=== PATIENT | female | born 1950 | race Caucasian/White ===

== ENCOUNTER 2018-05-06 20:23 | Emergency (ER) | payer MEDICARE, SELFPAY ==
[~2018-05-06] VITALS: Ht 167.6 cm; Wt 117.9 kg
[~2018-05-06 20:23] MED LIST: ASPI81CH; DAILY MULTIPLE1 EACH; HYDCHL25 PO; POTASSIUM99 M1 PO; PSYL5.85P PO; TRIHYD253B
[2018-05-06 20:56] LABS: BASOPHILS ABSOLUTE AUTO 0.03 K/mm3 (0.00-0.23); BASOPHILS PERCENT AUTO 0 % (0-2); EOSINOPHILS ABSOLUTE AUTO 0.02 K/mm3 (0.00-0.68); EOSINOPHILS PERCENT AUTO 0 % (0-6); Hematocrit 43.3 % (33.0-51.0); IMMATURE GRAN ABSOLUTE AUTO 0.19 K/mm3 (0.00-0.10); IMMATURE GRAN PERCENT AUTO 2 % (0-1); LYMPHOCYTES ABSOLUTE AUTO 2.58 K/mm3 (0.84-5.20); LYMPHOCYTES PERCENT AUTO 23 % (21-46); MONOCYTES ABSOLUTE AUTO 2.64 K/mm3 (0.16-1.47); MONOCYTES PERCENT AUTO 23 % (4-13); Mean Corpuscular HGB 28.3 pg (26.0-34.0); Mean Corpuscular HGB Conc 32.3 g/dL (31.5-36.5); Mean Corpuscular Volume 88 fL (80-100); NEUTROPHILS ABSOLUTE AUTO 5.93 K/mm3 (1.96-9.15); NEUTROPHILS PERCENT AUTO 52 % (41-73); Platelet Count 156 K/mm3 (150-400); RDW Coefficient Variation 14.1 % (11.7-14.2); RDW Standard Deviation 45.1 fL (35.1-46.3); Red Blood Cell Count 4.95 M/mm3 (3.80-5.20); White Blood Cell Count 11.39 K/mm3 (4.00-11.30)
[2018-05-06 21:17] LABS: Alanine Aminotransfer (ALT/SGP 30 U/L (12-78); Albumin, Blood 4.3 g/dL (3.4-5.0); Albumin/Globulin Ratio 1.2 (0.8-1.8); Alk Phos 73 U/L (50-136); Anion Gap 7 mmol/L (6-16); Aspartate Aminotrans (AST/SGOT 18 U/L (12-37); Bilirubin, Total 0.4 mg/dL (0.1-1.0); Blood Urea Nitrogen 19 mg/dL (8-24); Bun/Creatinine Ratio 24.6 (12.0-20.0); CO2, Blood 25 mmol/L (21-32); Calcium, Blood 10.1 mg/dL (8.5-10.1); Chloride, Blood 106 mmol/L (98-108); Creatinine, Blood 0.77 mg/dL (0.40-1.00); Globulin, Blood 3.7 g/dL (2.2-4.0); Glomerular Filtration Rate >60 (60-); Glucose, Blood 88 mg/dL (70-99); Potassium, Blood 3.4 mmol/L (3.5-5.5); Sodium, Blood 138 mmol/L (136-145); Troponin I <0.015 ng/mL (0.000-0.040)
[2018-05-07] MEDS ORDERED: VOLTAREN100 GM TOP (00:29)
== END 2018-05-07 00:43 | disposition home or self-care (01) ==
LOC: ER 20:23
PROVIDERS: Emergency Medicine
DX: R07.9 Chest pain, unspecified (principal); M54.9 Dorsalgia, unspecified; Z88.0 Allergy status to penicillin; Z91.048 Other nonmedicinal substance allergy status; Z88.1 Allergy status to other antibiotic agents; Z79.899 Other long term (current) drug therapy; Z79.82 Long term (current) use of aspirin; Z87.891 Personal history of nicotine dependence
CPT/HCPCS: 36415; 71046; 80053; 84484; 85025; 93005; 93010; 96374; 99284-25; J1885

== ENCOUNTER → 2019-10-23 | Outpatient (CLI) | payer MEDICARE ==
[~2019-10-23] MED LIST changes: +BIOTIN1 MG PO; +FURO40 PO; +POTA10T PO; +VOLTAREN100 GM TOP
[2019-10-23 20:53] LABS: CHOL/HDL RATIO 6.8; Cholesterol 191 mg/dL (50-200); HDL Cholesterol 28 mg/dL (>39); LDL/HDL RATIO 3.3; Low Density Lipoprotein Chol 91 mg/dL (0-110); Triglycerides 359 mg/dL (30-160); Uric Acid, Blood 6.4 mg/dL (2.6-6.0); Very Low Density Lipoprot Chol 71 mg/dL (6-32)
== END ==
LOC: LAB 19:23 → LAB SHORT 19:23 → EDSTATUS 10-02 15:40 → LAB FUT 10-02 15:40
PROVIDERS: Family Medicine
DX: E78.5 Hyperlipidemia, unspecified (principal); M1A.9XX1 Chronic gout, unspecified, with tophus (tophi)
CPT/HCPCS: 80061; 84550

== ENCOUNTER → 2020-03-11 | Outpatient (CLI) | payer MEDICARE, OTHER ==
[2020-03-11 20:32] LABS: Uric Acid, Blood 6.6 mg/dL (2.6-6.0)
[2020-03-11 20:37] LABS: Anion Gap 5 mmol/L (6-16); Blood Urea Nitrogen 21 mg/dL (8-24); CO2, Blood 28 mmol/L (21-32); Calcium, Blood 9.8 mg/dL (8.5-10.1); Chloride, Blood 105 mmol/L (98-108); Creatinine, Blood 0.72 mg/dL (0.40-1.00); Glomerular Filtration Rate >60 (60-); Glucose, Blood 94 mg/dL (70-99); Potassium, Blood 3.8 mmol/L (3.5-5.5); Sodium, Blood 138 mmol/L (136-145)
== END | disposition home or self-care (01) ==
LOC: LAB 19:26 → LAB SHORT 19:26
PROVIDERS: Family Medicine
DX: M1A.9XX1 Chronic gout, unspecified, with tophus (tophi) (principal)
CPT/HCPCS: 80048; 84550

== ENCOUNTER → 2020-03-25 | Outpatient (CLI) | payer MEDICARE ==
[2020-03-30 15:10] LABS: HPV 16 Negative (Negative); HPV 18 Negative (Negative); HPV OTHER HR TYPES Negative (Negative)
== END | disposition home or self-care (01) ==
LOC: LAB 19:37 → LAB SHORT 19:37
PROVIDERS: Family Medicine
DX: Z12.4 Encounter for screening for malignant neoplasm of cervix (principal)
CPT/HCPCS: 87624; G0123

== ENCOUNTER 2020-07-01 08:54 | Emergency (ER) | payer MEDICARE, OTHER ==
[~2020-07-01] VITALS: Ht 167.6 cm; Wt 115.7 kg
[2020-07-01] MEDS ORDERED: OMEP20ER PO (10:04)
[2020-07-01] MEDS ORDERED: FURO40 PO (10:04)
[2020-07-01] MEDS ORDERED: POTCHL20ER PO (10:05)
[2020-07-01] MEDS ORDERED: ALLO100 PO (10:05)
[2020-07-01] MEDS ORDERED: MELO7.5 PO (10:05)
[2020-07-01 11:20] LABS: BASOPHILS ABSOLUTE AUTO 0.05 K/mm3 (0.00-0.23); BASOPHILS PERCENT AUTO 1 % (0-2); EOSINOPHILS ABSOLUTE AUTO 0.06 K/mm3 (0.00-0.68); EOSINOPHILS PERCENT AUTO 1 % (0-6); Hematocrit 46.3 % (33.0-51.0); Hemoglobin 14.3 g/dL (11.5-16.0); IMMATURE GRAN ABSOLUTE AUTO 0.17 K/mm3 (0.00-0.10); IMMATURE GRAN PERCENT AUTO 2 % (0-1); LYMPHOCYTES ABSOLUTE AUTO 2.22 K/mm3 (0.84-5.20); LYMPHOCYTES PERCENT AUTO 27 % (21-46); MONOCYTES ABSOLUTE AUTO 1.56 K/mm3 (0.16-1.47); MONOCYTES PERCENT AUTO 19 % (4-13); Mean Corpuscular HGB 29.5 pg (26.0-34.0); Mean Corpuscular HGB Conc 30.9 g/dL (31.5-36.5); Mean Corpuscular Volume 96 fL (80-100); Mean Platelet Volume 10.6 fL (9.1-12.4); NEUTROPHILS ABSOLUTE AUTO 4.07 K/mm3 (1.96-9.15); NEUTROPHILS PERCENT AUTO 50 % (41-73); Platelet Count 212 K/mm3 (150-400); RDW Coefficient Variation 14.9 % (11.7-14.2); RDW Standard Deviation 52.7 fL (35.1-46.3); Red Blood Cell Count 4.85 M/mm3 (3.80-5.20); White Blood Cell Count 8.13 K/mm3 (4.00-11.30)
[2020-07-01 11:34] LABS: International Normalized Ratio 0.96; Prothrombin Time Results 10.3 Sec (9.7-11.5)
[2020-07-01 11:39] LABS: Alanine Aminotransfer (ALT/SGP 32 U/L (12-78); Albumin, Blood 4.1 g/dL (3.4-5.0); Albumin/Globulin Ratio 1.1 (0.8-1.8); Alk Phos 96 U/L (50-136); Anion Gap 4 mmol/L (6-16); Aspartate Aminotrans (AST/SGOT 24 U/L (12-37); Bilirubin, Total 0.4 mg/dL (0.1-1.0); Blood Urea Nitrogen 20 mg/dL (8-24); Bun/Creatinine Ratio 24.9 (12.0-20.0); CO2, Blood 28 mmol/L (21-32); Calcium, Blood 9.3 mg/dL (8.5-10.1); Chloride, Blood 109 mmol/L (98-108); Globulin, Blood 3.8 g/dL (2.2-4.0); Glomerular Filtration Rate >60 (60-); Glucose, Blood 96 mg/dL (70-99); Sodium, Blood 141 mmol/L (136-145); Total Protein, Blood 7.9 g/dL (6.4-8.2)
[2020-07-01] MEDS ORDERED: KEFLEX500 MG PO (12:14)
== END 2020-07-01 12:25 | disposition home or self-care (01) ==
LOC: ER 08:54
PROVIDERS: Emergency Medicine
DX: L03.115 Cellulitis of right lower limb (principal); Z88.0 Allergy status to penicillin; Z91.09 Other allergy status, other than to drugs and biological substances; Z88.1 Allergy status to other antibiotic agents; Z79.899 Other long term (current) drug therapy; Z87.891 Personal history of nicotine dependence
CPT/HCPCS: 36415; 80053; 85025; 85610; 85730; 87070; 87075; 87205; 93970; 99284-25

== ENCOUNTER 2021-03-28 12:17 | Inpatient (IN) | payer MEDICARE ==
[~2021-03-28] VITALS: Ht 170.2 cm; Wt 119.5 kg
[~2021-03-28 12:17] MED LIST changes: +ALLO100 PO; +KEFLEX500 MG PO; +MELO7.5 PO; +OMEP20ER PO; +POTCHL20ER PO
[2021-03-28 13:19] LABS: BASOPHILS ABSOLUTE AUTO 0.06 K/mm3 (0.00-0.23); BASOPHILS PERCENT AUTO 1 % (0-2); EOSINOPHILS ABSOLUTE AUTO 0.01 K/mm3 (0.00-0.68); EOSINOPHILS PERCENT AUTO 0 % (0-6); Hematocrit 44.9 % (33.0-51.0); Hemoglobin 15.1 g/dL (11.5-16.0); IMMATURE GRAN ABSOLUTE AUTO 0.52 K/mm3 (0.00-0.10); IMMATURE GRAN PERCENT AUTO 4 % (0-1); LYMPHOCYTES ABSOLUTE AUTO 1.02 K/mm3 (0.84-5.20); LYMPHOCYTES PERCENT AUTO 8 % (21-46); MONOCYTES ABSOLUTE AUTO 3.06 K/mm3 (0.16-1.47); MONOCYTES PERCENT AUTO 25 % (4-13); Mean Corpuscular HGB 29.5 pg (26.0-34.0); Mean Corpuscular HGB Conc 33.6 g/dL (31.5-36.5); Mean Corpuscular Volume 88 fL (80-100); NEUTROPHILS PERCENT AUTO 62 % (41-73); Platelet Count 75 K/mm3 (150-400); RDW Coefficient Variation 15.2 % (11.7-14.2); RDW Standard Deviation 49.4 fL (35.1-46.3); Red Blood Cell Count 5.11 M/mm3 (3.80-5.20); White Blood Cell Count 12.17 K/mm3 (4.00-11.30)
[2021-03-28 13:24] LABS: Mean Platelet Volume 13.6 fL (9.1-12.4)
[2021-03-28 13:35] LABS: Alanine Aminotransfer (ALT/SGP 103 U/L (12-78); Albumin, Blood 2.7 g/dL (3.4-5.0); Albumin/Globulin Ratio 0.7 (0.8-1.8); Alk Phos 132 U/L (50-136); Anion Gap 7 mmol/L (6-16); Aspartate Aminotrans (AST/SGOT 67 U/L (12-37); Bilirubin, Total 0.7 mg/dL (0.1-1.0); Blood Urea Nitrogen 13 mg/dL (8-24); Bun/Creatinine Ratio 19.3 (12.0-20.0); CO2, Blood 31 mmol/L (21-32); Calcium, Blood 8.9 mg/dL (8.5-10.1); Chloride, Blood 91 mmol/L (98-108); Creatinine, Blood 0.67 mg/dL (0.40-1.00); Globulin, Blood 4.1 g/dL (2.2-4.0); Glomerular Filtration Rate >60 (60-); Glucose, Blood 97 mg/dL (70-99); Potassium, Blood 3.5 mmol/L (3.5-5.5); Sodium, Blood 129 mmol/L (136-145); Total Protein, Blood 6.8 g/dL (6.4-8.2); Troponin I <0.015 ng/mL (0.000-0.040)
--- NOTE | 2021-03-28 17:34 | NUR ---
SHIFT SUMMARY PATIENT ARRIVED TO THE FLOOR FROM THE ED LATE THIS AFTERNOON. PATIENT ALERT AND ORIENTED UPON ARRIVAL. PATIENT TRANSFERED TO THE BED WITH MINIMAL ASSIST. PATIENT ON 10L O2 UPON ARRIVAL. PATIENT INCREASED TO 15L O2 ON REBREATHER TO MAINTAIN O2 > 90. PATIENT ENCOURAGED TO LAY ON HER SIDE TO MAINTAIN O2 SATS. PATIENT UP TO THE BATHROOM 1X, REMOVED HER O2. PATIENT EDUCATED TO USE BSC AND KEEP O2 ON. PATIENT CURRENTLY LYING IN BED RESTING.
[2021-03-29 05:04] LABS: BASOPHILS ABSOLUTE AUTO 0.04 K/mm3 (0.00-0.23); BASOPHILS PERCENT AUTO 0 % (0-2); EOSINOPHILS PERCENT AUTO 0 % (0-6); Hematocrit 41.6 % (33.0-51.0); Hemoglobin 14.2 g/dL (11.5-16.0); IMMATURE GRAN ABSOLUTE AUTO 0.37 K/mm3 (0.00-0.10); IMMATURE GRAN PERCENT AUTO 3 % (0-1); LYMPHOCYTES ABSOLUTE AUTO 1.44 K/mm3 (0.84-5.20); LYMPHOCYTES PERCENT AUTO 10 % (21-46); MONOCYTES ABSOLUTE AUTO 4.71 K/mm3 (0.16-1.47); MONOCYTES PERCENT AUTO 32 % (4-13); Mean Corpuscular HGB Conc 34.1 g/dL (31.5-36.5); Mean Corpuscular Volume 88 fL (80-100); Mean Platelet Volume 12.8 fL (9.1-12.4); NEUTROPHILS PERCENT AUTO 55 % (41-73); Platelet Count 70 K/mm3 (150-400); RDW Standard Deviation 48.3 fL (35.1-46.3); Red Blood Cell Count 4.73 M/mm3 (3.80-5.20); White Blood Cell Count 14.66 K/mm3 (4.00-11.30)
[2021-03-29 05:37] LABS: Alanine Aminotransfer (ALT/SGP 82 U/L (12-78); Albumin, Blood 2.6 g/dL (3.4-5.0); Albumin/Globulin Ratio 0.7 (0.8-1.8); Alk Phos 115 U/L (50-136); Anion Gap 5 mmol/L (6-16); Aspartate Aminotrans (AST/SGOT 51 U/L (12-37); Bilirubin, Total 0.5 mg/dL (0.1-1.0); Blood Urea Nitrogen 12 mg/dL (8-24); Bun/Creatinine Ratio 19.1 (12.0-20.0); CO2, Blood 32 mmol/L (21-32); Calcium, Blood 8.6 mg/dL (8.5-10.1); Chloride, Blood 96 mmol/L (98-108); Creatinine, Blood 0.63 mg/dL (0.40-1.00); Globulin, Blood 3.7 g/dL (2.2-4.0); Glomerular Filtration Rate >60 (60-); Glucose, Blood 98 mg/dL (70-99); Magnesium, Blood 2.3 mg/dL (1.6-2.4); Potassium, Blood 3.3 mmol/L (3.5-5.5); Sodium, Blood 133 mmol/L (136-145); Total Protein, Blood 6.3 g/dL (6.4-8.2)
[2021-03-29 05:52] LABS: Source, Urine Catheter
[2021-03-29 05:55] LABS: Bilirubin, Urine Neg (Neg); Blood, Urine 3+ (Neg); Glucose Qualitative, Urine Neg (Neg); Ketones, Urine Neg (Neg); Leukocyte Esterase, Urine Neg (Neg); Nitrite, Urine Neg (Neg); Protein, Urine 1+ (Neg); Specific Gravity, Urine 1.005 (1.003-1.022); Urobilinogen, Urine NORM (Normal)
--- NOTE | 2021-03-29 06:00 | NUR ---
SHIFT SUMMARY: NORMALLY AOX3 BUT FREQUENT PERIODS OF CONFUSION LAST NIGHT PULLING OFF HER OXYGEN, AND NOT KNOWING WHERE SHE WAS AT. WHEN OXYGEN SATS ARE UP SHE APPEARS TO BE WITH IT BUT SOON THEY DROP SHE IS CONFUSED/FORGETFUL. MAX OUT ON THE AIRVO 60L 95-100%O2. SLIGHT MOVMENT CAUSES HER TO DROP ON HER SATS TO LOW 80%. COUGH IS LOOSE PRODUCTIVE, THICK YELLOW. GOT HER TO AT LEAST LAY ON SIDE WHICH IMPROVES HER SATS AT LEAST JUST ABOVE 90%, IF SHE LAYS ON HER BACK IT DROPS TO MID 80'S. WAS FREQUENTLY GETTING UP TO BSC, LOOSE STOOLS, INCONTIENT/CONTENIENT. FREQUENT URINATION. EVERY TIMES SHE GOT UP SHE DESAT TO 79-80% RECOVER TOOK LONG TIME TO GET HER SATS BACK UP. CALLED MD ORDER FOR CATH WAS OBTAINED, 14 F PLACED. SHE WAS ABLE TO SLEEP FOR SHORT PERIOD ONLY. PATIENT IS VERY ILL AND IS TIRED, WARN OUT. AT RISK FOR HIGHER NEED OF O2, SHE WAS BOADERLINE BIPAP ALL NIGHT, DROPPING FREQUENTLY AND COULD NOT MOVE OFF HER SIDE. VS WNL, AFEBRILE. CALL LIGHT IN REACH.
[2021-03-29 06:06] LABS: Appearance, Urine Clear (Clear); Color, Urine Pale Yellow (P-Yellow)
[2021-03-29 06:08] LABS: Bacteria Not Seen /hpf; Squamous Epithelial Cells Rare /hpf (Few); White Blood Cells, Urine 0-2 /hpf (0-5)
[2021-03-29 12:04] LABS: PCO2 Arterial 53.2 mmHg (35-45); PO2 Arterial 62.1 mmHg (80-100); pH Blood Arterial 7.41 (7.35-7.45)
--- NOTE | 2021-03-29 14:45 | NUR ---
PT ARRIVAL... PT ARRIVED ON THE UNIT AT 1430 WITH AIRVO AT 60L AND 95% WITH O2 SATS AT 90-93% L/S CLEAR IN THE UPPER LOBES DIM IN THE LOWER. PT'S OTHER VS STABLE AT THIS TIME, PT AWAKE AND TALKING, RR IN THE HIGH 20'S MID 30'S. PT'S BT PRESENT AND HYPOACTIVE, ABD IS SOFT AND NONTENDER TO PALP. PT'S CHADWICK IS PATENT AND DRAINING TO GRAVITY. PT'S O2 SATS DROP QUICKLY WITH ANY TYPE OF MOVEMENT AND SHE RECOVERS SLOWLY. WILL CONTINUE TO MONITOR.
--- NOTE | 2021-03-29 15:35 | NUR ---
PT WAS TRANSFERED TO PCU ALERT AND ORIENTED X4, WITH RT, AID AND NURSE AT SIDE, MAKING NO COMPLAINTS OF SOB OR CHEST PAIN AT THE TIME. PT BELONGINGS WERE ON SELF. UPDATE WAS GIVEN TO FAMILY.
--- NOTE | 2021-03-29 17:08 | NUR ---
SHIFT SUMMARY... AT APROX 1645 THE PT'S O2 SATS STARTED TO DROP DOWN TO 85% PT'S FIO2 WAS TURNED UP TO 100% PUTTING HER AT 60L AND 100% ON THE BIPAP ON HI-FLOW SETTINGS. PT'S OTHER VS STABLE AT THIS TIME. RT WAS CALLED AND THEY CAME INTO THE ROOM TO SET UP FOR BIPAP, THE PT WAS PLACED ON BIPAP AT: 14/8 AND 90% FIO2, THE PT'S O2 SATS DROPPED QUICKLY WHEN THE AIRVO WAS CHANGED TO THE BIPAP, THE PT'S O2 SATS DROPPED DOWN TO 78%, ONCE THE BIPAP MASK WAS ON THEY IMPROVED QUICKLY UP TO 90% BUT THEN STARTED TO DROP BACK DOWN TO 86-87% THE FIO2 WAS INCREASED TO 95% AND THE PTS O2 SATS ARE CURRENTLY AT 90%. PT'S CHADWICK DRAINED A LARGE AMOUNT OF CLEAR YELLOW URINE TO GRAVITY, PT HAS NOT HAD A BM SINCE COMING TO THE PCU, PT IS CURRENTLY NPO WHILE ON THE BIPAP. CALL LIGHT IN REACH WILL CONTINUE TO MONITOR UNTIL REPORT IS GIVEN TO ONCOMING RN.
[2021-03-30 04:06] LABS: BASOPHILS ABSOLUTE AUTO 0.05 K/mm3 (0.00-0.23); BASOPHILS PERCENT AUTO 0 % (0-2); EOSINOPHILS PERCENT AUTO 0 % (0-6); Hematocrit 38.4 % (33.0-51.0); Hemoglobin 12.6 g/dL (11.5-16.0); IMMATURE GRAN ABSOLUTE AUTO 0.37 K/mm3 (0.00-0.10); IMMATURE GRAN PERCENT AUTO 2 % (0-1); LYMPHOCYTES PERCENT AUTO 9 % (21-46); MONOCYTES ABSOLUTE AUTO 5.53 K/mm3 (0.16-1.47); MONOCYTES PERCENT AUTO 31 % (4-13); Mean Corpuscular HGB 29.6 pg (26.0-34.0); Mean Corpuscular HGB Conc 32.8 g/dL (31.5-36.5); Mean Corpuscular Volume 90 fL (80-100); Mean Platelet Volume 12.8 fL (9.1-12.4); NEUTROPHILS ABSOLUTE AUTO 10.43 K/mm3 (1.96-9.15); NEUTROPHILS PERCENT AUTO 58 % (41-73); Platelet Count 87 K/mm3 (150-400); RDW Coefficient Variation 15.6 % (11.7-14.2); RDW Standard Deviation 51.5 fL (35.1-46.3); Red Blood Cell Count 4.25 M/mm3 (3.80-5.20); White Blood Cell Count 18.08 K/mm3 (4.00-11.30)
[2021-03-30 04:31] LABS: Alanine Aminotransfer (ALT/SGP 90 U/L (12-78); Albumin, Blood 2.3 g/dL (3.4-5.0); Albumin/Globulin Ratio 0.7 (0.8-1.8); Alk Phos 107 U/L (50-136); Anion Gap 5 mmol/L (6-16); Aspartate Aminotrans (AST/SGOT 66 U/L (12-37); Bilirubin, Total 0.5 mg/dL (0.1-1.0); Blood Urea Nitrogen 14 mg/dL (8-24); Bun/Creatinine Ratio 23.3 (12.0-20.0); CO2, Blood 30 mmol/L (21-32); Chloride, Blood 102 mmol/L (98-108); Globulin, Blood 3.4 g/dL (2.2-4.0); Glomerular Filtration Rate >60 (60-); Glucose, Blood 79 mg/dL (70-99); Potassium, Blood 3.6 mmol/L (3.5-5.5); Sodium, Blood 137 mmol/L (136-145); Total Protein, Blood 5.7 g/dL (6.4-8.2)
--- NOTE | 2021-03-30 06:47 | NUR ---
SHIFT SUMMARY PT RESTED WELL THROUGH MOST OF NIGHT. ANXIOUS ABOUT WEARING BIPAP, BUT UNABLE TO TOLERATE AIRVO AT THIS TIME. BIPAP SETTINGS INCREASED. 18/03 TO 20/07 100%. SATS ARE 92%. TELE TERRIER/ST. CHADWICK IN [place], DRAINING TO GRAVITY. NO BM. 20G LAC WITH NS @100/HR. XANAX GIVEN X1. VSS. CALL LIGHT WITHIN REACH, BED IN LOWEST POSITINO. WILL CONTINEU TO MONITOR.
--- NOTE | 2021-03-30 09:38 | NUR ---
[facility] Received report from night nurse. Per report, pt has been pulling off bipap mask and not wanting to keep it on as she reports that it is uncomfortable. This morning the float nurse and PRODUCT ENGINEER assisted the pt up to the recliner and gave her a break from the mask and set her up on AIRVO. She did ok for a few minutes but then started to desat into the low 80's. The Dr was in the room. This nurse and the clinical coordinator spoke with the pt about her need for increased o2 and the pt agreed to trial the BIPAP mask again. She is currently at 96 % with 100 % o2 on the BIPAP. Her hogan is patent. Palliative care consult has been called in per the dr request to discuss code status. She is sitting up in the recliner with her call light in reach.
--- NOTE | 2021-03-30 16:04 | NUR ---
Shift Summary Pt is a/o x 2-3 today with some mild confusion. She has been able to tolerate the Bipap mask after talking with her this morning and she is maintaining her sats in the 90's. Once situated in the recliner her anxiety has been much better. Her hogan is patent with summer urine output. Her IV fluids have been infusing as ordered. Her has been updated and thankful for her care. The pt is able to make her needs known and has her call light in reach.
--- NOTE | 2021-03-30 18:34 | NUR ---
Received consult for Palliative care for this patient. After some disussion with her bedside nurse, felt it appropriate to assess pt, and speak to pt's spouse regarding future plans related to her care. He is a realist and states today he would not want her resusitated if her heart were to stop. This is reasonalble. She is not currently in a place where she would be able to appropriately answer questions. However, pt has stated she found ventilation appropriate for the time being. Will review this with tomorrow.
[2021-03-31 04:46] LABS: BASOPHILS ABSOLUTE AUTO 0.04 K/mm3 (0.00-0.23); BASOPHILS PERCENT AUTO 0 % (0-2); EOSINOPHILS ABSOLUTE AUTO 0.02 K/mm3 (0.00-0.68); EOSINOPHILS PERCENT AUTO 0 % (0-6); Hemoglobin 12.4 g/dL (11.5-16.0); Mean Corpuscular HGB 29.2 pg (26.0-34.0); Mean Corpuscular HGB Conc 31.8 g/dL (31.5-36.5); Mean Corpuscular Volume 92 fL (80-100); Mean Platelet Volume 12.3 fL (9.1-12.4); Platelet Count 121 K/mm3 (150-400); RDW Coefficient Variation 15.9 % (11.7-14.2); RDW Standard Deviation 53.6 fL (35.1-46.3); Red Blood Cell Count 4.25 M/mm3 (3.80-5.20); White Blood Cell Count 20.36 K/mm3 (4.00-11.30)
[2021-03-31 04:49] LABS: IMMATURE GRAN ABSOLUTE AUTO 0.57 K/mm3 (0.00-0.10); IMMATURE GRAN PERCENT AUTO 3 % (0-1); LYMPHOCYTES ABSOLUTE AUTO 1.91 K/mm3 (0.84-5.20); LYMPHOCYTES PERCENT AUTO 9 % (21-46); MONOCYTES ABSOLUTE AUTO 6.21 K/mm3 (0.16-1.47); MONOCYTES PERCENT AUTO 31 % (4-13); NEUTROPHILS ABSOLUTE AUTO 11.61 K/mm3 (1.96-9.15); NEUTROPHILS PERCENT AUTO 57 % (41-73)
[2021-03-31 04:55] LABS: Alanine Aminotransfer (ALT/SGP 82 U/L (12-78); Albumin, Blood 2.4 g/dL (3.4-5.0); Albumin/Globulin Ratio 0.7 (0.8-1.8); Alk Phos 131 U/L (50-136); Anion Gap 5 mmol/L (6-16); Aspartate Aminotrans (AST/SGOT 49 U/L (12-37); Bilirubin, Total 0.7 mg/dL (0.1-1.0); Blood Urea Nitrogen 14 mg/dL (8-24); Bun/Creatinine Ratio 20.7 (12.0-20.0); CO2, Blood 31 mmol/L (21-32); Calcium, Blood 8.1 mg/dL (8.5-10.1); Chloride, Blood 104 mmol/L (98-108); Creatinine, Blood 0.68 mg/dL (0.40-1.00); Globulin, Blood 3.6 g/dL (2.2-4.0); Glomerular Filtration Rate >60 (60-); Glucose, Blood 75 mg/dL (70-99); Potassium, Blood 3.7 mmol/L (3.5-5.5); Sodium, Blood 140 mmol/L (136-145)
--- NOTE | 2021-03-31 09:15 | NUR ---
SHIFT SUMMARY PT ALERT AND ORIENTED, ABLE TO MAKE NEEDS KNWON. COOPERATIVE WITH PLAN OF CARE. SATS >90% ON BIPAP 16/12 90% FIO2. TELE NSR. CHADWICK IN PLACE, DRAINING TO GRAVITY, JESUS CARE PERFOEMED. REPSOITIONING FREQUTNLY TO KEEP PT COMFORTABLE. TYLENOL X1 FOR BACK PAIN - SEE EMAR. VSS. NO CHANGES OVERNIGHT. CALL LGIHT WITHIN REACH, BED IN LOWEST POSITION. WILL CONTINUE TO MONITOR.
--- NOTE | 2021-03-31 18:43 | NUR ---
SUMMARY PT HAS BEEN ON BIPAP ALL DAY. HAS BEEN TOLERATING WELL AND LEAVING IT ON. PT HAS BEEN PLEASANT AND COOPERATIVE. FIO2 WAS DECREASED TO 75%. PT HAS BEEN ABLE TO TEXT ON HER PHONE TO FAMILY. NO OTHER CHANGES THIS SHIFT.
--- NOTE | 2021-03-31 19:45 | NUR ---
Per charge nurse Surya, pt is able to make her needs and wants known. No changes to code status at this time.
[2021-04-01 04:28] LABS: BASOPHILS ABSOLUTE AUTO 0.08 K/mm3 (0.00-0.23); BASOPHILS PERCENT AUTO 0 % (0-2); EOSINOPHILS ABSOLUTE AUTO 0.02 K/mm3 (0.00-0.68); EOSINOPHILS PERCENT AUTO 0 % (0-6); Hematocrit 42.5 % (33.0-51.0); Hemoglobin 13.4 g/dL (11.5-16.0); IMMATURE GRAN ABSOLUTE AUTO 0.91 K/mm3 (0.00-0.10); IMMATURE GRAN PERCENT AUTO 4 % (0-1); LYMPHOCYTES ABSOLUTE AUTO 1.65 K/mm3 (0.84-5.20); LYMPHOCYTES PERCENT AUTO 7 % (21-46); MONOCYTES ABSOLUTE AUTO 6.74 K/mm3 (0.16-1.47); MONOCYTES PERCENT AUTO 29 % (4-13); Mean Corpuscular HGB 29.1 pg (26.0-34.0); Mean Corpuscular HGB Conc 31.5 g/dL (31.5-36.5); Mean Corpuscular Volume 92 fL (80-100); Mean Platelet Volume 11.5 fL (9.1-12.4); NEUTROPHILS ABSOLUTE AUTO 13.88 K/mm3 (1.96-9.15); NEUTROPHILS PERCENT AUTO 60 % (41-73); Platelet Count 173 K/mm3 (150-400); RDW Coefficient Variation 16.1 % (11.7-14.2); White Blood Cell Count 23.28 K/mm3 (4.00-11.30)
[2021-04-01 04:55] LABS: Alanine Aminotransfer (ALT/SGP 88 U/L (12-78); Albumin, Blood 2.5 g/dL (3.4-5.0); Albumin/Globulin Ratio 0.6 (0.8-1.8); Alk Phos 167 U/L (50-136); Anion Gap 5 mmol/L (6-16); Aspartate Aminotrans (AST/SGOT 54 U/L (12-37); Bilirubin, Total 1.1 mg/dL (0.1-1.0); Blood Urea Nitrogen 12 mg/dL (8-24); Bun/Creatinine Ratio 20.4 (12.0-20.0); CO2, Blood 29 mmol/L (21-32); Calcium, Blood 7.3 mg/dL (8.5-10.1); Chloride, Blood 106 mmol/L (98-108); Creatinine, Blood 0.59 mg/dL (0.40-1.00); Globulin, Blood 3.9 g/dL (2.2-4.0); Glomerular Filtration Rate >60 (60-); Glucose, Blood 77 mg/dL (70-99); Potassium, Blood 3.6 mmol/L (3.5-5.5); Sodium, Blood 140 mmol/L (136-145); Total Protein, Blood 6.4 g/dL (6.4-8.2)
--- NOTE | 2021-04-01 06:16 | NUR ---
SHIFT SUMMARY ASSUMED CARE OF PT AT 1900. PT IS A/OX4. HEART SOUNDS REGULAR. LUNG SOUNDS HAVE CRACKLES T/O. PT REMAINED ON THE BIPAP T/O THE NIGHT. PT WAS TITRATED DOWN TO 65% AND STILL REMAINED WITH SATURATIONS ABOVE 95%. PT TOLERATED GOING FROM THE BED TO RECLINER AND BACK WITH 1P ASSIT. MINIMAL DESATURATION. PT HAS A CHADWICK DRAINING WITH GRAVITY. CALL LIGHT IN REACH, BED IN LOWEST POSITON.
--- NOTE | 2021-04-01 18:25 | NUR ---
SHIFT SUMMARY PT ALERT AND ORIENTED X 4. VITAL SIGNS ARE FOLLOWS AT 1600; BP 129/59, HR 102, RR 25. PT NOW ON AIRVO AT 65 L/MIN, 65% FIO2. PATIENT IS PLEASANT AND COOPERATIVE W/ CARE AND IS A 1 PERSON SBA. PATIENT WAS ABLE TO GET UP TO BEDSIDE COMMODE AND SPO2 REMAINED IN THE 90'S. THE PATIENT WAS ON THE BIPAP THIS AFTERNOON WHILE SLEEPING AND SATURATIONS REMAINED IN THE 90'S. LEFT IV SITE APPEARED SLIGHTLY RED AND IRRITATED AND WAS REMOVED AT APPROX. 1600. POWERGLIDE WILL BE PLACED BY OSMEL HERNANDEZ. PATIENT COMPLAINED OF BACK PAIN AND A HEADACHE DURING SHIFT AND WAS TREATED PER EMAR ORDERS. PATIENT STATED RELIEF ONCE TREATED PER EMAR. CHADWICK CATHETER IS IN PLACE; DRAINING W/ GRAVITY. NO OTHER ACUTE CHANGES NOTED. WILL CONTINUE TO MONITOR THROUGOUGHT SHIFT.
--- NOTE | 2021-04-02 06:15 | NUR ---
SHIFT SUMMARY ASSUMED CARE OF PT AT 1900. PT IS A/OX4. HEART SOUNDS REGULAR, LUNG SOUNDS HAVE CRACKLES T/O. PT REMAINED ON THE BIPAP T/O THE NIGHT. PT WAS A 1P WITH WALKER TO BSC AND CHAIR. PT C/O BEING TIRED THIS SHIFT. PT IS A LITTLE DEPRESSED EVIDENCE BY WANTING TO CUT HER HAIR DUE TO THE BIPAP AND ASKING IF SHE WILL EVER GET BETTER. CALL LIGHT IN REACH, BED IN LOWEST POSTION.
[2021-04-02 10:05] LABS: BASOPHILS ABSOLUTE AUTO 0.08 K/mm3 (0.00-0.23); BASOPHILS PERCENT AUTO 0 % (0-2); EOSINOPHILS ABSOLUTE AUTO 0.06 K/mm3 (0.00-0.68); EOSINOPHILS PERCENT AUTO 0 % (0-6); Hematocrit 39.7 % (33.0-51.0); Hemoglobin 12.6 g/dL (11.5-16.0); IMMATURE GRAN ABSOLUTE AUTO 0.84 K/mm3 (0.00-0.10); IMMATURE GRAN PERCENT AUTO 3 % (0-1); LYMPHOCYTES ABSOLUTE AUTO 4.03 K/mm3 (0.84-5.20); LYMPHOCYTES PERCENT AUTO 16 % (21-46); MONOCYTES ABSOLUTE AUTO 7.21 K/mm3 (0.16-1.47); MONOCYTES PERCENT AUTO 28 % (4-13); Mean Corpuscular HGB 29.3 pg (26.0-34.0); Mean Corpuscular HGB Conc 31.7 g/dL (31.5-36.5); Mean Corpuscular Volume 92 fL (80-100); Mean Platelet Volume 11.6 fL (9.1-12.4); NEUTROPHILS PERCENT AUTO 53 % (41-73); Platelet Count 176 K/mm3 (150-400); RDW Coefficient Variation 16.5 % (11.7-14.2); RDW Standard Deviation 54.9 fL (35.1-46.3); White Blood Cell Count 25.82 K/mm3 (4.00-11.30)
[2021-04-02 10:17] LABS: Alanine Aminotransfer (ALT/SGP 64 U/L (12-78); Albumin, Blood 2.2 g/dL (3.4-5.0); Albumin/Globulin Ratio 0.6 (0.8-1.8); Alk Phos 135 U/L (50-136); Anion Gap 4 mmol/L (6-16); Aspartate Aminotrans (AST/SGOT 26 U/L (12-37); Bilirubin, Total 0.8 mg/dL (0.1-1.0); Blood Urea Nitrogen 13 mg/dL (8-24); Bun/Creatinine Ratio 24.2 (12.0-20.0); CO2, Blood 29 mmol/L (21-32); Calcium, Blood 7.1 mg/dL (8.5-10.1); Chloride, Blood 107 mmol/L (98-108); Creatinine, Blood 0.54 mg/dL (0.40-1.00); Glomerular Filtration Rate >60 (60-); Glucose, Blood 98 mg/dL (70-99); Potassium, Blood 3.8 mmol/L (3.5-5.5); Sodium, Blood 140 mmol/L (136-145); Total Protein, Blood 6.2 g/dL (6.4-8.2)
[2021-04-02 13:52] LABS: Base Excess Venous 3.4 mmol/L; Bicarbonate Venous 26.3 mmol/L (24.0-30.0); PCO2 Venous 55.3 mmHg (38-42); PO2 Venous 96.7 mmHg (38-42); pH Blood Venous 7.33 (7.34-7.37)
--- NOTE | 2021-04-02 17:31 | NUR ---
SHIFT SUMMARY PATIENT REMAINED ALERT AND ORIENTED X 4. PATIENT IS NOW ON BIPAP 14/8 AT 40% FIO2 AND SATURATIONS REMAIN AT 96%. WHEN PATIENT IS ON AIRVO FOR ORAL CARE/MEALS, PATIENT IS AT 80L/MIN, 50% FIO2 AND SATURATIONS REMAIN AT 96%. VITAL SIGNS AT 1600 ARE FOLLOWS; BP 117/65, HR 84, RR 24. PATIENT REMAINED IN RECLINER FOR DURATION OF SHIFT. PATIENT REPORTED SITTING IN CHAIR ALLEVIATED THE BACK PAIN SHE EXPERIENCED YESTERDAY. PATIENT DENIED PAIN. PATIENT DENIED CHEST PAIN/PRESSURE. POWERGLIDE IN [place] IS INFUSING NS PER EMAR ORDERS. CHADWICK CATHETER IS IN PLACE AND DRAINING W/ GRAVITY. NO OTHER ACUTE CHANGES NOTED. WILL CONTINUE TO MONITOR FOR REMAINDER OF SHIFT.
--- NOTE | 2021-04-03 06:12 | NUR ---
SHIFT SUMMARY ASSUMED CARE OF PT AT 1900. PT IS A/OX4. HEART SOUNDS REGULAR, LUNG SOUNDS ARE DIMINISHED WITH CRACKLES AT THE BASES. PT WAS ON THE AIRVO T/O THE NIGHT WITH SATURATIONS ABOVE 90%. PT IS A 1P TRANSFER TO BSC AND BED. PT HAS A CHADWICK DRAINING WITH GRAVITY. PT IS HAPPY THAT SHE IS DOING BETTER. CALL LIGHT IN REACH, BED IN LOWEST POSITION.
[2021-04-03 09:14] LABS: BASOPHILS ABSOLUTE AUTO 0.07 K/mm3 (0.00-0.23); BASOPHILS PERCENT AUTO 0 % (0-2); EOSINOPHILS ABSOLUTE AUTO 0.06 K/mm3 (0.00-0.68); EOSINOPHILS PERCENT AUTO 0 % (0-6); Hematocrit 39.8 % (33.0-51.0); Hemoglobin 12.5 g/dL (11.5-16.0); IMMATURE GRAN ABSOLUTE AUTO 0.59 K/mm3 (0.00-0.10); IMMATURE GRAN PERCENT AUTO 3 % (0-1); LYMPHOCYTES ABSOLUTE AUTO 2.34 K/mm3 (0.84-5.20); LYMPHOCYTES PERCENT AUTO 12 % (21-46); MONOCYTES ABSOLUTE AUTO 5.65 K/mm3 (0.16-1.47); MONOCYTES PERCENT AUTO 28 % (4-13); Mean Corpuscular HGB 28.9 pg (26.0-34.0); Mean Corpuscular HGB Conc 31.4 g/dL (31.5-36.5); Mean Corpuscular Volume 92 fL (80-100); Mean Platelet Volume 11.5 fL (9.1-12.4); NEUTROPHILS ABSOLUTE AUTO 11.48 K/mm3 (1.96-9.15); NEUTROPHILS PERCENT AUTO 57 % (41-73); Platelet Count 201 K/mm3 (150-400); RDW Coefficient Variation 16.5 % (11.7-14.2); RDW Standard Deviation 55.8 fL (35.1-46.3); Red Blood Cell Count 4.33 M/mm3 (3.80-5.20); White Blood Cell Count 20.19 K/mm3 (4.00-11.30)
--- NOTE | 2021-04-03 16:59 | NUR ---
SHIFT SUMMARY PATIENT ALERT AND ORIENTED X 4. PATIENT NOW ON AIRVO 50L/MIN, 43% FIO2 AND SATURATIONS RANGE FROM 93-95%. SBP HAS TRENDED UP DURING SHIFT FROM 142 TO 164. THIS NURSE DISCUSSED PRESSURES W/ DR. MARTINEZ WELL DISCONTINUING NORMAL SALINE. NORMAL SALINE WAS DISCONTINUED THIS AFTERNOON. PATIENT IS ABLE TO TAKE IN ORAL HYDRATION THROUGHOUT SHIFT. PATIENT SAT IN RECLINER FOR MAJORITY OF SHIFT AND WAS A 1 PERSON SBA TO COMMODE AND BED. NO OTHER ACUTE CHANGES NOTED; PATIENT NOW APPEARS TO BE RESTING IN RECLINER. WILL CONTINUE TO MONITOR PATIENT WELL PATIENT BP.
--- NOTE | 2021-04-04 01:12 | NUR ---
CARE ASSUMPTION PT SLEEPING IN RECLINER W O2 SATS >90% ON 50L 45% FIO2. PT APPEARS IN NO DISTRESS AT THIS TIME.
--- NOTE | 2021-04-04 05:28 | NUR ---
PRIMARY CARE MD SUMMARY PT IS AXO X4. PT MAINTAINED O2 SATS >92% ON AIRVO 50L W 45% FIO2 THIS SHIFT. PT ABLE TO TRANSFER SELF FROM BED TO CHAIR W MINIMAL ASSISTANCE. PT DENYING ANY PAIN OR NAUSEA TO THIS RN. TELE SHOWING SR IN THE 80'S THIS SHIFT. WILL REPORT TO ONCOMING RN.
[2021-04-04 09:06] LABS: BASOPHILS ABSOLUTE AUTO 0.06 K/mm3 (0.00-0.23); BASOPHILS PERCENT AUTO 0 % (0-2); EOSINOPHILS ABSOLUTE AUTO 0.06 K/mm3 (0.00-0.68); EOSINOPHILS PERCENT AUTO 0 % (0-6); Hematocrit 39.9 % (33.0-51.0); Hemoglobin 12.9 g/dL (11.5-16.0); IMMATURE GRAN ABSOLUTE AUTO 0.86 K/mm3 (0.00-0.10); IMMATURE GRAN PERCENT AUTO 4 % (0-1); LYMPHOCYTES ABSOLUTE AUTO 2.69 K/mm3 (0.84-5.20); LYMPHOCYTES PERCENT AUTO 13 % (21-46); MONOCYTES ABSOLUTE AUTO 5.93 K/mm3 (0.16-1.47); MONOCYTES PERCENT AUTO 29 % (4-13); Mean Corpuscular HGB 29.3 pg (26.0-34.0); Mean Corpuscular HGB Conc 32.3 g/dL (31.5-36.5); Mean Corpuscular Volume 91 fL (80-100); NEUTROPHILS ABSOLUTE AUTO 11.16 K/mm3 (1.96-9.15); NEUTROPHILS PERCENT AUTO 54 % (41-73); Platelet Count 247 K/mm3 (150-400); RDW Coefficient Variation 16.3 % (11.7-14.2); White Blood Cell Count 20.76 K/mm3 (4.00-11.30)
[2021-04-04 09:16] LABS: Anion Gap 7 mmol/L (6-16); Blood Urea Nitrogen 11 mg/dL (8-24); Bun/Creatinine Ratio 21.5 (12.0-20.0); CO2, Blood 29 mmol/L (21-32); Calcium, Blood 7.8 mg/dL (8.5-10.1); Chloride, Blood 105 mmol/L (98-108); Creatinine, Blood 0.51 mg/dL (0.40-1.00); Glomerular Filtration Rate >60 (60-); Glucose, Blood 86 mg/dL (70-99); Potassium, Blood 3.5 mmol/L (3.5-5.5); Sodium, Blood 141 mmol/L (136-145)
--- NOTE | 2021-04-04 19:29 | NUR ---
SHIFT SUMMARY: PATIENT TRANSFERRED TO ROOM 207 AT APPROX 1815. REPORT GIVEN TO MARY FARIAS ON SURGICAL FLOOR. PATIENT HAS BEEN A/OX3. HAS DENIED PAIN THROUGHOUT THE SHIFT. ON AIRVO 50L FIO2 43-45%. UP IN RECLINER ALL SHIFT. UP TO COMMODE WITH SBA. HAD LOOSE STOOLS TODAY, NOT NEW FOR PATIENT.
--- NOTE | 2021-04-04 19:34 | NUR ---
TRANSFER SUMMARY PATIENT ARRIVED TO [facility] IN RECLINER FROM PCU. ALERT AND ORIENTED. ON NON-REBREATHER MASK AT 15L. SWITCHED PATIENT BACK TO AIRVO AT 50L/50% FIO2. SATS 96%. SET UP PATIENT WITH DINNER TRAY. ATTACHED SPO2 MONITOR. CHADWICK INTACT AND DRAINING. CALL LIGHT WITHIN REACH. GAVE REPORT TO MARKETING OPERATIONS CONSULTANT RN.
--- NOTE | 2021-04-05 06:46 | NUR ---
TRANSPORTED FROM PCU ROOM 10 TO 207 IN RECLINER AT 1900HRS. SITS IN RECLINER AT BEDSIDE D/T CHRONIC BACK PAIN. AMBULATES TO BSC WITH 1 PERSON ASSISTANCE. AAO X4, [place], FOLLOWS ALL COMMANDS. REPORTS INTERMTTENT CONFUSION. RESPIRATIONS EVEN AND UNLABORED ON AIRVO AT 50L AND 50%. LUNG SOUNDS COARSE BILATERALLY. PT IS COVID 19 (+), DROPLETTE PRECAUTIONS IN PLACE. ABDOMEN SOFT AND NONDISTENDED. BOWEL SOUNDS NOTED IN ALL QUADS. CHADWICK CATH IS PATENT, DRAINING CLEAR YELLOW URINE TO GRAVITY. DENIES FURTHER NEEDS OR WANTS AT THIS TIME. SAFETY MEASURES IN PLACE. WILL CONTINUE TO MONITOR ANF GIVE HAND OFF TO ONCOMING SHIFT USING SBAR DURING BEDSIDE REPORT USING SBAR.
[2021-04-05 08:34] LABS: BASOPHILS ABSOLUTE AUTO 0.08 K/mm3 (0.00-0.23); BASOPHILS PERCENT AUTO 0 % (0-2); EOSINOPHILS ABSOLUTE AUTO 0.07 K/mm3 (0.00-0.68); EOSINOPHILS PERCENT AUTO 0 % (0-6); Hematocrit 42.8 % (33.0-51.0); Hemoglobin 13.8 g/dL (11.5-16.0); IMMATURE GRAN ABSOLUTE AUTO 0.56 K/mm3 (0.00-0.10); IMMATURE GRAN PERCENT AUTO 3 % (0-1); LYMPHOCYTES ABSOLUTE AUTO 3.04 K/mm3 (0.84-5.20); LYMPHOCYTES PERCENT AUTO 16 % (21-46); MONOCYTES ABSOLUTE AUTO 5.88 K/mm3 (0.16-1.47); MONOCYTES PERCENT AUTO 32 % (4-13); Mean Corpuscular HGB 29.6 pg (26.0-34.0); Mean Corpuscular HGB Conc 32.2 g/dL (31.5-36.5); Mean Corpuscular Volume 92 fL (80-100); NEUTROPHILS ABSOLUTE AUTO 8.91 K/mm3 (1.96-9.15); NEUTROPHILS PERCENT AUTO 48 % (41-73); Platelet Count 266 K/mm3 (150-400); RDW Coefficient Variation 16.5 % (11.7-14.2); RDW Standard Deviation 54.1 fL (35.1-46.3); Red Blood Cell Count 4.67 M/mm3 (3.80-5.20); White Blood Cell Count 18.54 K/mm3 (4.00-11.30)
--- NOTE | 2021-04-05 18:36 | NUR ---
END OF SHIFT SUMMARY: PATIENT DENIED PAIN THROUGHOUT THE SHIFT. PATIENT TOLERATING OXYMIZER WELL. SPO2 STAYED ABOVE 90% AT REST. PATIENT DESATURATED LOW 86 WHEN GETTING UP TO THE BEDSIDE COMMODE AND QUICKLY RECOVERED WHEN SITTING. PATIENT ABLE TO WORK WITH PT/OT. PATIENT TOLERATED WELL WITH SOME DESATURATION AND QUICK RECOVERY.
--- NOTE | 2021-04-06 03:05 | NUR ---
SHIFT SUMMARY NO ACUTE CHANGES OVERNIGHT. PT WEAN ON OXIMYZER FROM 6L TO 5L. TOLERATING IT WELL, SATURATING AT 92-95%, SLEEPING IN THE RECLINER. DESAT WITH MOV'T AT 85% BUT RECOVER QUICKLY. SHE IS ALERT AND ORIENTED X4. VOIDING CLEAR WITHOUT ANY DIFFICULTY. ATTENDS IN PLACE DUE TO STRESS INCONTINENCE. PT DENIES PAIN. CALL PT SLEPT GOOD OVERNIGHT. CALL LIGHT WITHIN REACH. WILL PROVIDE REPORT TO ONCOMING NURSE.
[2021-04-06 08:49] LABS: BASOPHILS ABSOLUTE AUTO 0.09 K/mm3 (0.00-0.23); BASOPHILS PERCENT AUTO 0 % (0-2); EOSINOPHILS ABSOLUTE AUTO 0.08 K/mm3 (0.00-0.68); EOSINOPHILS PERCENT AUTO 0 % (0-6); Hematocrit 44.4 % (33.0-51.0); Hemoglobin 14.2 g/dL (11.5-16.0); IMMATURE GRAN ABSOLUTE AUTO 0.42 K/mm3 (0.00-0.10); IMMATURE GRAN PERCENT AUTO 2 % (0-1); LYMPHOCYTES ABSOLUTE AUTO 3.84 K/mm3 (0.84-5.20); LYMPHOCYTES PERCENT AUTO 17 % (21-46); MONOCYTES PERCENT AUTO 35 % (4-13); Mean Corpuscular HGB 29.2 pg (26.0-34.0); Mean Corpuscular Volume 91 fL (80-100); NEUTROPHILS PERCENT AUTO 45 % (41-73); Platelet Count 281 K/mm3 (150-400); RDW Coefficient Variation 16.6 % (11.7-14.2); RDW Standard Deviation 53.5 fL (35.1-46.3); Red Blood Cell Count 4.86 M/mm3 (3.80-5.20); White Blood Cell Count 22.03 K/mm3 (4.00-11.30)
[2021-04-06] MEDS ORDERED: GUAI600T33 PO (14:46)
[2021-04-06] MEDS ORDERED: OMEP20ER PO (14:46)
--- NOTE | 2021-04-06 18:28 | NUR ---
DISCHARGE PT A/O X4, IND IN ROOM. HOME O2 EVAL REC. 3L AT REST, 4L O2 NC DURING EXERTION. HOME O2 SET UP BY BRI AND PT DEMONSTRATED USE PRIOR TO LEAVING. PT DC'ING WITH O2 FOR RIDE HOME AND CONCENTRATOR AT HOME. BRI DELIVERED HOME EQUIPMENT TODAY TO PT'S HOUSE. DC INSTRUCTIONS REVIEWED WITH PT; REPORTS UNDERSTANDING AND NO QUESTIONS. PERSONAL BELONGINGS SENT WITH PT. POWERGLIDE DC'D WNL. PT DRESSED IN PERSONAL CLOTHES AND SLIPPERS. ESCORTED TO VEHICLE VIA WHEELCHAIR. DC'D AT 1830.
== END 2021-04-06 18:33 | disposition home health service (06) | DRG 177 ==
LOC: ER 12:17 → MEDS 14:09 → PCU 03-29 13:30 → SURS 04-04 19:00
PROVIDERS: Emergency Medicine; Family Medicine; Internal Medicine; Nurse Practitioner Acute Care; Student in an Organized Health Care Education/Training Program; ADMIT Internal Medicine
PROC: 8E0ZXY6 Isolation (ICD-10-PCS; principal; 2021-03-28)
PROC: 3E0333Z Introduction of Anti-inflammatory into Peripheral Vein, Percutaneous Approach (ICD-10-PCS; 2021-03-28)
PROC: XW033E5 Introduction of Remdesivir Anti-infective into Peripheral Vein, Percutaneous Approach, New Technology Group 5 (ICD-10-PCS; 2021-03-28)
PROC: 5A09457 Assistance with Respiratory Ventilation, 24-96 Consecutive Hours, Continuous Positive Airway Pressure (ICD-10-PCS; 2021-03-28)
DX: U07.1 COVID-19 (principal); J12.82 Pneumonia due to coronavirus disease 2019; J96.01 Acute respiratory failure with hypoxia; Z68.41 Body mass index [BMI] 40.0-44.9, adult; E87.1 Hypo-osmolality and hyponatremia; R79.89 Other specified abnormal findings of blood chemistry; E87.6 Hypokalemia; M10.9 Gout, unspecified; K21.9 Gastro-esophageal reflux disease without esophagitis; E66.01 Morbid (severe) obesity due to excess calories; Z90.49 Acquired absence of other specified parts of digestive tract; Z90.89 Acquired absence of other organs; Z98.890 Other specified postprocedural states; Z88.0 Allergy status to penicillin; Z88.1 Allergy status to other antibiotic agents; Z91.09 Other allergy status, other than to drugs and biological substances; Z79.899 Other long term (current) drug therapy
CPT/HCPCS: 36415; 36600; 71045; 71260; 80048; 80053; 81001; 82803; 83735; 83880; 84145; 84484; 85025; 85379; 86140; 87070; 87205; 93005; 93010; 94640; 94660; 94761; 94762; 96372-59; 96374; 97110; 97116; 97162; 97165; 97530; 97535; 99285-25; A9270; C1751; J1100; J1650; J2060; J2405; J3480; J7030; Q9967

== ENCOUNTER 2021-04-12 15:18 | Emergency (ER) | payer MEDICARE ==
[~2021-04-12] VITALS: Ht 170.2 cm; Wt 114.8 kg
[~2021-04-12 15:18] MED LIST changes: +GUAI600T33 PO
[2021-04-12 16:04] LABS: BASOPHILS ABSOLUTE AUTO 0.02 K/mm3 (0.00-0.23); BASOPHILS PERCENT AUTO 0 % (0-2); EOSINOPHILS PERCENT AUTO 0 % (0-6); Hematocrit 46.1 % (33.0-51.0); Hemoglobin 14.8 g/dL (11.5-16.0); IMMATURE GRAN ABSOLUTE AUTO 0.11 K/mm3 (0.00-0.10); IMMATURE GRAN PERCENT AUTO 1 % (0-1); LYMPHOCYTES PERCENT AUTO 8 % (21-46); MONOCYTES ABSOLUTE AUTO 7.45 K/mm3 (0.16-1.47); MONOCYTES PERCENT AUTO 51 % (4-13); Mean Corpuscular HGB Conc 32.1 g/dL (31.5-36.5); Mean Corpuscular Volume 90 fL (80-100); Mean Platelet Volume 10.6 fL (9.1-12.4); NEUTROPHILS ABSOLUTE AUTO 5.76 K/mm3 (1.96-9.15); NEUTROPHILS PERCENT AUTO 40 % (41-73); Platelet Count 270 K/mm3 (150-400); RDW Standard Deviation 56.2 fL (35.1-46.3); Red Blood Cell Count 5.11 M/mm3 (3.80-5.20); White Blood Cell Count 14.54 K/mm3 (4.00-11.30)
[2021-04-12 16:32] LABS: Alanine Aminotransfer (ALT/SGP 79 U/L (12-78); Albumin, Blood 2.9 g/dL (3.4-5.0); Albumin/Globulin Ratio 0.6 (0.8-1.8); Alk Phos 169 U/L (50-136); Anion Gap 5 mmol/L (6-16); Aspartate Aminotrans (AST/SGOT 59 U/L (12-37); Bilirubin, Total 0.8 mg/dL (0.1-1.0); Blood Urea Nitrogen 10 mg/dL (8-24); Bun/Creatinine Ratio 12.1 (12.0-20.0); CO2, Blood 28 mmol/L (21-32); Calcium, Blood 8.6 mg/dL (8.5-10.1); Chloride, Blood 101 mmol/L (98-108); Creatinine, Blood 0.83 mg/dL (0.40-1.00); Globulin, Blood 4.9 g/dL (2.2-4.0); Glomerular Filtration Rate >60 (60-); Glucose, Blood 111 mg/dL (70-99); Potassium, Blood 3.8 mmol/L (3.5-5.5); Sodium, Blood 134 mmol/L (136-145); Total Protein, Blood 7.8 g/dL (6.4-8.2); Troponin I <0.015 ng/mL (0.000-0.040)
[2021-04-12] MEDS ORDERED: AZIT250 PO (19:29)
[2021-04-12] MEDS ORDERED: CEFP200 PO (19:29)
== END 2021-04-12 20:30 | disposition home or self-care (01) ==
LOC: ER 15:18
PROVIDERS: Emergency Medicine Emergency Medical Services
DX: U07.1 COVID-19 (principal); J12.82 Pneumonia due to coronavirus disease 2019; J15.9 Unspecified bacterial pneumonia; Z88.0 Allergy status to penicillin; Z91.048 Other nonmedicinal substance allergy status; Z88.1 Allergy status to other antibiotic agents; Z79.899 Other long term (current) drug therapy
CPT/HCPCS: 36415; 71260; 80053; 83605; 83690; 84145; 84484; 85025; 86140; 93005; 93010; 96374-59; 99284-25; A9270; J0696; J7030; Q9967

== ENCOUNTER → 2021-04-17 | Outpatient (CLI) | payer MEDICARE ==
[~2021-04-17] MED LIST changes: +AZIT250 PO; +CEFP200 PO
[2021-04-17 15:26] LABS: BASOPHILS ABSOLUTE AUTO 0.03 K/mm3 (0.00-0.23); BASOPHILS PERCENT AUTO 0 % (0-2); EOSINOPHILS PERCENT AUTO 1 % (0-6); Hematocrit 39.2 % (33.0-51.0); Hemoglobin 12.4 g/dL (11.5-16.0); Mean Corpuscular HGB 29.6 pg (26.0-34.0); Mean Corpuscular HGB Conc 31.6 g/dL (31.5-36.5); Mean Corpuscular Volume 94 fL (80-100); Platelet Count 306 K/mm3 (150-400); RDW Coefficient Variation 17.1 % (11.7-14.2); RDW Standard Deviation 58.3 fL (35.1-46.3); Red Blood Cell Count 4.19 M/mm3 (3.80-5.20); White Blood Cell Count 8.65 K/mm3 (4.00-11.30)
[2021-04-17 16:00] LABS: Alanine Aminotransfer (ALT/SGP 54 U/L (12-78); Albumin, Blood 2.6 g/dL (3.4-5.0); Albumin/Globulin Ratio 0.6 (0.8-1.8); Alk Phos 120 U/L (50-136); Anion Gap 3 mmol/L (6-16); Aspartate Aminotrans (AST/SGOT 25 U/L (12-37); Bilirubin, Total 0.3 mg/dL (0.1-1.0); Blood Urea Nitrogen 12 mg/dL (8-24); Bun/Creatinine Ratio 15.2 (12.0-20.0); CO2, Blood 32 mmol/L (21-32); Calcium, Blood 9.4 mg/dL (8.5-10.1); Chloride, Blood 106 mmol/L (98-108); Creatinine, Blood 0.79 mg/dL (0.40-1.00); Globulin, Blood 4.3 g/dL (2.2-4.0); Glomerular Filtration Rate >60 (60-); Glucose, Blood 89 mg/dL (70-99); IMMATURE GRAN ABSOLUTE AUTO 0.15 K/mm3 (0.00-0.10); IMMATURE GRAN PERCENT AUTO 2 % (0-1); LYMPHOCYTES ABSOLUTE AUTO 1.84 K/mm3 (0.84-5.20); LYMPHOCYTES PERCENT AUTO 21 % (21-46); MONOCYTES ABSOLUTE AUTO 2.59 K/mm3 (0.16-1.47); MONOCYTES PERCENT AUTO 30 % (4-13); NEUTROPHILS ABSOLUTE AUTO 3.94 K/mm3 (1.96-9.15); NEUTROPHILS PERCENT AUTO 46 % (41-73); Potassium, Blood 3.7 mmol/L (3.5-5.5); Sodium, Blood 141 mmol/L (136-145); Total Protein, Blood 6.9 g/dL (6.4-8.2)
== END | disposition home or self-care (01) ==
LOC: LAB SHORT 15:22 → LAB 15:22
PROVIDERS: Family Medicine
DX: U07.1 COVID-19 (principal)
CPT/HCPCS: 80053; 85025; 86140

== ENCOUNTER → 2023-08-07 | Outpatient (CLI) | payer MEDICARE ==
[2023-08-07 15:48] LABS: BASOPHILS ABSOLUTE AUTO 0.19 K/mm3 (0.00-0.23); BASOPHILS PERCENT AUTO 1 % (0-2); EOSINOPHILS ABSOLUTE AUTO 0.14 K/mm3 (0.00-0.68); EOSINOPHILS PERCENT AUTO 1 % (0-6); Hematocrit 48.3 % (33.0-51.0); Hemoglobin 14.8 g/dL (11.5-16.0); IMMATURE GRAN ABSOLUTE AUTO 0.76 K/mm3 (0.00-0.10); IMMATURE GRAN PERCENT AUTO 4 % (0-1); LYMPHOCYTES ABSOLUTE AUTO 3.38 K/mm3 (0.84-5.20); LYMPHOCYTES PERCENT AUTO 17 % (21-46); MONOCYTES ABSOLUTE AUTO 3.14 K/mm3 (0.16-1.47); MONOCYTES PERCENT AUTO 16 % (4-13); Mean Corpuscular HGB 24.6 pg (26.0-34.0); Mean Corpuscular HGB Conc 30.6 g/dL (31.5-36.5); Mean Corpuscular Volume 80 fL (80-100); Mean Platelet Volume 10.5 fL (9.1-12.4); NEUTROPHILS ABSOLUTE AUTO 11.92 K/mm3 (1.96-9.15); NEUTROPHILS PERCENT AUTO 61 % (41-73); Platelet Count 288 K/mm3 (150-400); RDW Coefficient Variation 18.2 % (11.7-14.2); RDW Standard Deviation 48.1 fL (35.1-46.3); Red Blood Cell Count 6.01 M/mm3 (3.80-5.20); White Blood Cell Count 19.53 K/mm3 (4.00-11.30)
[2023-08-07 16:25] LABS: CHOL/HDL RATIO 6.6; Cholesterol 145 mg/dL (50-200); HDL Cholesterol 22 mg/dL (>39); Low Density Lipoprotein Chol 43 mg/dL (0-110); Magnesium, Blood 2.2 mg/dL (1.6-2.4); Triglycerides 398 mg/dL (30-160); Very Low Density Lipoprot Chol 79 mg/dL (6-32)
[2023-08-09 08:13] LABS: A/G RATIO 1.9 (1.2-2.2); BILIRUBIN, TOTAL 0.5 mg/dL (0.0-1.2); CALCIUM, SERUM 9.9 mg/dL (8.7-10.3); CREATININE, SERUM 1.09 mg/dL (0.57-1.00); GLOBULIN, TOTAL 2.6 g/dL (1.5-4.5); POTASSIUM, SERUM 4.4 mmol/L (3.5-5.2); PROTEIN, TOTAL, SERUM 7.6 g/dL (6.0-8.5)
[2023-08-09 13:09] LABS: HEMOGLOBIN A1C 5.8 % (4.8-5.6)
== END | disposition home or self-care (01) ==
LOC: LAB SHORT 14:22 → LAB 14:22
PROVIDERS: Family Medicine
DX: Z51.81 Encounter for therapeutic drug level monitoring (principal); Z79.899 Other long term (current) drug therapy
CPT/HCPCS: 80053; 80061; 82306; 83036; 83735; 84443; 85025

== ENCOUNTER 2023-09-02 08:55 | Day surgery (SDC) | payer MEDICARE ==
[~2023-09-02] VITALS: Ht 167.6 cm; Wt 41.4 kg
[~2023-09-02 08:55] MED LIST changes: +ALBU90OI INH; +BENZONATATE100 MG PO; +MAGNESIUM OXID500 MG PO; +MERIBIN5 MG PO; +N-ACETYL-L-CYS600 M1 PO; +STIOLTO RESPIMAT4 G1 IH
[2023-09-02] MEDS ORDERED: Oxybutynin Chlor5 M1 PO (09:30)
[2023-09-02] MEDS ORDERED: Hydroxyurea500 MG PO (09:30)
[2023-09-02] MEDS ORDERED: EZET10 PO (09:31)
[2023-09-02] MEDS ORDERED: NAC600 MG PO (09:32)
--- NOTE | 2023-09-02 10:26 | NUR ---
09/02/23 Jonathan6 Kelley De La Cruz AT SCALE PT WAS DIZZY AND UNSTEADY. PT STATES THIS HAS BEEN BASELINE SINCE . PT WHEELED TO ROOM WITH WC BY RN.
--- NOTE | 2023-09-02 11:39 | NUR ---
09/02/23 1139 Izaiah Carmen PATIENT POSITIONED ON GEL HARTMANN BAG. PILLOW UNDER HEAD AND BETWEEN KNEES. LEFT ARM SECURED ON PADDED ARM BOARD. GEL UNDER SEAT BELTS X2. POSITION CHECKED BY ANESTHESIA AND SURGEON.
[2023-09-02 14:05] VITALS: BP 149/87
== END 2023-09-02 15:54 | disposition home or self-care (01) ==
LOC: ORSCSDS 08:55
PROVIDERS: Orthopaedic Surgery
PROC: 0RNJ4ZZ Release Right Shoulder Joint, Percutaneous Endoscopic Approach (ICD-10-PCS; principal; 2023-09-02 11:05)
DX: M75.121 Complete rotator cuff tear or rupture of right shoulder, not specified as traumatic (principal); M75.41 Impingement syndrome of right shoulder; I10 Essential (primary) hypertension; G47.33 Obstructive sleep apnea (adult) (pediatric); Z87.891 Personal history of nicotine dependence; E66.01 Morbid (severe) obesity due to excess calories; Z68.41 Body mass index [BMI] 40.0-44.9, adult; Z79.899 Other long term (current) drug therapy; Z79.82 Long term (current) use of aspirin; Z86.16 Personal history of COVID-19
CPT/HCPCS: C1713; J0171; J0696; J1100; J1885; J2371; J2405; J2704; J3010; J7120

== ENCOUNTER → 2025-02-23 | Outpatient (CLI) | payer MEDICARE ==
[~2025-02-23] MED LIST changes: +EZET10 PO; +Hydroxyurea500 MG PO; +NAC600 MG PO; +Oxybutynin Chlor5 M1 PO
[2025-02-23 16:35] LABS: Hematocrit 50.0 % (33.0-51.0); Hemoglobin 14.1 g/dL (11.5-16.0); Mean Corpuscular HGB Conc 28.2 g/dL (31.5-36.5); Mean Corpuscular Volume 76 fL (80-100); NRBC ABSOLUTE 0.00 K/mm3 (0.00-0.02); NRBC Auto 0.0 /100 WBC (0.0-0.2); Platelet Count 587 K/mm3 (150-400); RDW Coefficient Variation 18.6 % (11.7-14.2); RDW Standard Deviation 46.6 fL (35.1-46.3)
[2025-02-23 17:05] LABS: BAND PERCENT MAN 3 % (0-8); BASOPHILS ABSOLUTE MAN 0.26 K/mm3 (0.00-0.23); BASOPHILS PERCENT MAN 1 % (0-2); EOSINOPHILS ABSOLUTE MAN 0.26 K/mm3 (0.00-0.68); EOSINOPHILS PERCENT MAN 1 % (0-6); LYMPHOCYTES ABSOLUTE MAN 3.22 K/mm3 (0.84-5.20); LYMPHOCYTES PERCENT MAN 12 % (21-46); METAMYELOCYTE ABSOLUTE MAN 0.26 K/mm3 (0.00-0.00); METAMYELOCYTE PERCENT MAN 1 % (0-0); MONOCYTES ABSOLUTE MAN 3.48 K/mm3 (0.16-1.47); MONOCYTES PERCENT MAN 13 % (4-13); MYELOCYTE ABSOLUTE MAN 0.53 K/mm3 (0.00-0.00); MYELOCYTE PERCENT MAN 2 % (0-0); NEUTROPHILS ABSOLUTE MAN 18.78 K/mm3 (1.96-9.15); SEG NEUTROPHILS PERCENT MAN 67 % (41-73)
== END ==
LOC: LAB 15:21 → LAB SHORT 15:21
PROVIDERS: Internal Medicine Hematology & Oncology
DX: D75.1 Secondary polycythemia (principal)
CPT/HCPCS: 85025

== ENCOUNTER → 2025-04-08 | Outpatient (CLI) | payer MEDICARE ==
[2025-04-08 16:12] LABS: Hematocrit 45.1 % (33.0-51.0); Hemoglobin 13.0 g/dL (11.5-16.0); Mean Corpuscular HGB Conc 28.8 g/dL (31.5-36.5); Mean Corpuscular Volume 75 fL (80-100); NRBC ABSOLUTE 0.00 K/mm3 (0.00-0.02); NRBC Auto 0.0 /100 WBC (0.0-0.2); Platelet Count 459 K/mm3 (150-400); RDW Coefficient Variation 17.2 % (11.7-14.2); RDW Standard Deviation 42.8 fL (35.1-46.3)
[2025-04-08 17:14] LABS: BAND PERCENT MAN 5 % (0-8); BASOPHILS ABSOLUTE MAN 0.26 K/mm3 (0.00-0.23); BASOPHILS PERCENT MAN 1 % (0-2); EOSINOPHILS ABSOLUTE MAN 0.78 K/mm3 (0.00-0.68); EOSINOPHILS PERCENT MAN 3 % (0-6); LYMPHOCYTES ABSOLUTE MAN 3.66 K/mm3 (0.84-5.20); LYMPHOCYTES PERCENT MAN 14 % (21-46); METAMYELOCYTE ABSOLUTE MAN 0.26 K/mm3 (0.00-0.00); METAMYELOCYTE PERCENT MAN 1 % (0-0); MONOCYTES ABSOLUTE MAN 3.14 K/mm3 (0.16-1.47); MONOCYTES PERCENT MAN 12 % (4-13); MYELOCYTE ABSOLUTE MAN 1.04 K/mm3 (0.00-0.00); MYELOCYTE PERCENT MAN 4 % (0-0); NEUTROPHILS ABSOLUTE MAN 17.03 K/mm3 (1.96-9.15); SEG NEUTROPHILS PERCENT MAN 60 % (41-73)
== END ==
LOC: LAB SHORT 15:09 → LAB 15:09
PROVIDERS: Internal Medicine Hematology & Oncology
DX: D75.1 Secondary polycythemia (principal)
CPT/HCPCS: 85025